=== PATIENT | male | born 1955 | race African-American/Black ===

== ENCOUNTER 2016-04-27 11:06 | Emergency (ER) | payer MEDICAID ==
[~2016-04-27] VITALS: Ht 180.3 cm; Wt 64.0 kg
[~2016-04-27 11:06] MED LIST: AMLO5 PO; ASPI81CH25 CHEW; TOPI1TAB97 PO
[2016-04-27 11:17] VITALS: BP 144/82; PULSE 44; RESP 16; O2SAT 100
--- NOTE | 2016-04-27 11:50 | PD ---
HPI Chief Complaint: Hypertension Time Seen by Provider: 11:50 Travel History International Travel<30 days: No Contact w/Intl Traveler<30days: No Traveled to known affect area: No History of Present Illness HPI 60-year-old Afro-[place]ish male brought in by ambulance with high blood pressure , and low back pain. Patient has a history of hypertension and seizure disorder as well as low back pain. Patient normally takes amlodipine 5 mg daily , and topiramate 25 mg twice a day, and tramadol 50 mg 4 times a day. Patient states he's been out of all of his meds since 11 April. [place]. He was in an argument this morning with his girlfriend, which causes back pain to get worse and his blood pressure rise. He is trying to get refills of his meds, but [place]. Patient states no numbness, tingling, or weakness in the lower extremities. No bowel or bladder changes. He has no headache. He states his back pain is typical, and a 5/10. Patient states he is improved since arriving in the emergency department. He is allergic to penicillin. PFSH Past Medical History Arthritis: Yes (RA) Heart Rhythm Problems: No Cardiac Catheterization: No Cardiovascular Problems: Yes High Cholesterol: No Chest Pain: Yes Congestive Heart Failure: No COPD: Yes Diabetes: No Diminished Hearing: Yes Hypertension: Yes Respiratory: Yes Migraines: Yes Myocardial Infarction: No Past Surgical History Coronary Artery Bypass Graft: No Other Surgery: Yes (HERNIA) Social History Alcohol Use: No Tobacco Use: Yes (3 cigs ) Substance Use: Yes ([facility]2004) Allergies-Medications (Allergen,Severity, Reaction): Coded Allergies: Penicillin (Verified Allergy, Severe, 02/19/16) Reported Meds & Prescriptions Reported Meds & Active Scripts Active Tramadol (Tramadol HCl) 50 Mg Tab 50 Mg PO Q6H PRN Amlodipine (Amlodipine Besylate) 5 Mg Tab 5 Mg PO DAILY Topiramate 25 Mg Tab 25 Mg PO BID Aspirin Low Strength (Aspirin) 81 Mg Chew 81 Mg CHEW DAILY Norvasc (Amlodipine Besylate) 5 Mg Tab 5 Mg PO DAILY Review of Systems Except as stated in HPI: all other systems reviewed are Neg General / Constitutional: No: Fever Eyes: No: Visual changes HENT: No: Headaches Cardiovascular: No: Chest Pain or Discomfort Respiratory: No: Shortness of Breath Gastrointestinal: No: Abdominal Pain Genitourinary: No: Dysuria Musculoskeletal: Positive: Arthralgias, Limited ROM, Pain (see history present illness.) Skin: No Rash Neurologic: No: Weakness Psychiatric: No: Depression Endocrine: No: Polydipsia Hematologic/Lymphatic: No: Easy Bruising Physical Exam Narrative GENERAL: Thin Afro-Swedish male laying on the exam gurney in no acute distress. SKIN: Warm and dry. Normal color. Normal turgor. No signs of trauma. HEAD: Atraumatic. Normocephalic. EYES: Pupils equal and round. No scleral icterus. No injection or drainage. ENT: No nasal bleeding or discharge. Mucous membranes pink and moist. Pharynx is normal. NECK: Trachea midline. No JVD. Supple and nontender. CARDIOVASCULAR: Regular rate and rhythm. RESPIRATORY: No accessory muscle use. Clear to auscultation. Breath sounds equal bilaterally. GASTROINTESTINAL: Abdomen soft, non-tender, nondistended. Hepatic and splenic margins not palpable. No palpable mass or bruits appreciated. MUSCULOSKELETAL: Extremities without clubbing, cyanosis, or edema. No obvious deformities. Patient has negative straight leg raise pain in both lower extremities. He has pain with palpation along the lumbar spine otherwise no significant findings. NEUROLOGICAL: Awake and alert. No obvious cranial nerve deficits. Motor grossly within normal limits. Five out of 5 muscle strength in the arms and legs. Normal speech. PSYCHIATRIC: Appropriate mood and affect; insight and judgment normal. Data Data Last Documented VS Vital Signs Date Time Temp Pulse Resp B/P Pulse Ox O2 Delivery O2 Flow Rate FiO2 04/27/16 11:17 44 16 144/82 100 Orders Tramadol (Ultram) (04/27/16 12:00) Amlodipine (Norvasc) (04/27/16 12:00) Topiramate (Topamax) (04/27/16 12:00) [facility] Medical Decision Making Medical Screen Exam Complete: Yes Emergency Medical Condition: Yes Differential Diagnosis Uncontrolled Hypertension. Chronic low back pain. Need for medication. History of seizure disorder. Narrative Course Patient is given his regular meds including 50 mg tramadol by mouth, 5 mg amlodipine by mouth, and topiramate 25 mg by mouth. Patient is monitored and blood pressures rechecked and found to be 161/87. Patient is given a prescription for his amlodipine 5 mg daily #30 with no refills as well as topiramate 25 mg twice a day #60 with no refills. Patient is given 1 prescription for tramadol 50 mg 4 times a day #40 only with no refill. Patient is felt stable to be discharged home and follow up with his primary care physician should be a priority. Diagnosis Primary Impression: Situational stress Additional Impressions: Hypertension Qualified Code: I10 - Essential hypertension Lumbago Qualified Code: M54.5 - Chronic bilateral low back pain without sciatica Seizure disorder Referrals: Primary Care Physician Patient Instructions: General Instructions Additional Instructions: Patient is given his regular meds including 50 mg tramadol by mouth, 5 mg amlodipine by mouth, and topiramate 25 mg by mouth. Patient is monitored and blood pressures rechecked and found to be 161/87. Patient is given a prescription for his amlodipine 5 mg daily #30 with no refills as well as topiramate 25 mg twice a day #60 with no refills. Patient is given 1 prescription for tramadol 50 mg 4 times a day #40 only with no refill. Patient is felt stable to be discharged home and follow up with his primary care physician should be a priority. Med/Other Pt SpecificInfo: Prescription(s) given Scripts Tramadol 50 Mg Tab50 Mg PO Q6H PRN (PAIN) #40 TAB Ref 0 Prov:Natanael Snyder MD 04/27/16 Amlodipine 5 Mg Tab5 Mg PO DAILY #30 TAB Ref 0 Prov:Natanael Snyder MD 04/27/16 Topiramate 25 Mg Tab25 Mg PO BID #60 TAB Ref 0 Prov:Natanael Snyder MD 04/27/16 Disposition: DISCHARGE HOME Condition: Stable Gurjit Vargas Apr 27, 2016 11:50
[2016-04-27] MEDS ORDERED: TRAM50TA PO (11:53)
[2016-04-27] MEDS ORDERED: TOPI1TAB97 PO (11:53)
[2016-04-27] MEDS ORDERED: AMLO5TAB2 PO (11:53)
[2016-04-27] MEDS ORDERED: traMADol HCL 50 MG TAB PO ONE (12:00)
[2016-04-27] MEDS ORDERED: TOPIRAMATE 25 MG TAB PO ONE (12:00)
[2016-04-27] MEDS ORDERED: amLODIPine BESYLATE 5 MG TAB PO ONE (12:00)
[2016-04-27 12:41] VITALS: BP 161/87
== END 2016-04-27 12:42 | disposition home or self-care (01) ==
LOC: NEDAMB 11:06
DX: F43.9 Reaction to severe stress, unspecified (principal); I10 Essential (primary) hypertension; M54.5 Low back pain; R56.9 Unspecified convulsions; J44.9 Chronic obstructive pulmonary disease, unspecified; Z72.0 Tobacco use
CPT/HCPCS: 99283